=== PATIENT | male | born 1960 | race Caucasian/White ===

== ENCOUNTER 2021-09-17 16:15 | Inpatient (IN) | payer OTHER ==
[~2021-09-17] VITALS: Ht 180.3 cm; Wt 109.9 kg
[2021-09-17 16:42] LABS: Hematocrit 35.6 % (37.0-53.0); Hemoglobin 13.2 g/dL (13.5-17.5); Mean Corpuscular HGB 30.3 pg (26.0-34.0); Mean Corpuscular HGB Conc 37.1 g/dL (31.5-36.5); Mean Corpuscular Volume 82 fL (80-100); Mean Platelet Volume 10.8 fL (9.1-12.4); Platelet Count 221 K/mm3 (150-400); RDW Coefficient Variation 13.4 % (11.7-14.2); RDW Standard Deviation 39.8 fL (35.1-46.3); Red Blood Cell Count 4.36 M/mm3 (4.30-5.90); White Blood Cell Count 17.58 K/mm3 (4.00-11.30)
[2021-09-17 17:05] LABS: Albumin, Blood 2.6 g/dL (3.4-5.0); Albumin/Globulin Ratio 0.6 (0.8-1.8); Bilirubin, Total 0.2 mg/dL (0.1-1.0); Bun/Creatinine Ratio 30.3 (12.0-20.0); Calcium, Blood 8.6 mg/dL (8.5-10.1); Creatinine, Blood 2.31 mg/dL (0.60-1.20); Potassium, Blood 3.2 mmol/L (3.5-5.5); Total Protein, Blood 6.6 g/dL (6.4-8.2)
[2021-09-17 17:11] LABS: BAND PERCENT MAN 7 % (0-8); BASOPHILS PERCENT MAN 0 % (0-2); EOSINOPHILS PERCENT MAN 0 % (0-6); LYMPHOCYTES ABSOLUTE MAN 0.87 K/mm3 (0.84-5.20); LYMPHOCYTES PERCENT MAN 5 % (21-46); METAMYELOCYTE ABSOLUTE MAN 0.17 K/mm3 (0.00-0.00); METAMYELOCYTE PERCENT MAN 1 % (0-0); MONOCYTES ABSOLUTE MAN 1.93 K/mm3 (0.16-1.47); MONOCYTES PERCENT MAN 11 % (4-13); MYELOCYTE ABSOLUTE MAN 0.17 K/mm3 (0.00-0.00); MYELOCYTE PERCENT MAN 1 % (0-0); NEUTROPHILS ABSOLUTE MAN 14.41 K/mm3 (1.96-9.15); SEG NEUTROPHILS PERCENT MAN 75 % (41-73); TOTAL CELLS COUNTED 100
[2021-09-17 18:17] LABS: Source, Urine Clean Catch
[2021-09-17 18:27] LABS: Bilirubin, Urine Neg (Neg); Blood, Urine 2+ (Neg); Glucose Qualitative, Urine 4+ (Neg); Ketones, Urine Neg (Neg); Leukocyte Esterase, Urine 1+ (Neg); Nitrite, Urine Neg (Neg); Protein, Urine Neg (Neg); Urobilinogen, Urine NORM (Normal)
[2021-09-17 18:35] LABS: Magnesium, Blood 2.7 mg/dL (1.6-2.4)
[2021-09-17 18:37] LABS: Thyroid Stimulating Hormone 1.96 uIU/mL (0.360-4.800)
[2021-09-17 18:39] LABS: Appearance, Urine Clear (Clear); Color, Urine Pale Yellow (P-Yellow)
[2021-09-17 18:41] LABS: Amorphous Light (0-Heavy); Bacteria Mod /hpf; Red Blood Cells, Urine 0-2 /hpf (0-2); Squamous Epithelial Cells Rare /hpf (Few)
[2021-09-17] MEDS ORDERED: METF500C PO (19:08)
[2021-09-17] MEDS ORDERED: INVOKANA300 MG PO (19:09)
[2021-09-17] MEDS ORDERED: AMLO5 PO (19:10)
[2021-09-17 19:11] LABS: Influenza A, PCR NEGATIVE (NEGATIVE); Influenza B, PCR NEGATIVE (NEGATIVE); Resp Syncytial Virus, PCR NEGATIVE (NEGATIVE); SARS-Cov-2 (COVID-19) PCR, MMC NEGATIVE (NEGATIVE)
[2021-09-17] MEDS ORDERED: FURO20 PO (19:13)
[2021-09-17] MEDS ORDERED: LISI20 PO (19:13)
--- NOTE | 2021-09-17 23:30 | NUR ---
PT ADMITTED TO ROOM ICU 3 AT 2230 THIS EVENING FROM ED. REPORT RECEIVED. PT ABLE TO PIVOT TRANSFER TO BED FROM [facility]. DURING THIS TIME, LEVOPHED WAS ON HOLD. NO VERTIGO WITH TRANSFER. BLOOD PRESSURES REMAINED HYPOTENSIVE WITH MAP NEAR 60. LEVOPHED RESTARTED AT 5 MCG'S/MIN. PT HAS SOFT/LOOSE STOOL THAT WAS BLACK IN NATURE. PT ADMITS THAT HE HAS BEEN USING PEPTO-BISMOL LATELY. DR REYEZ WAS CONSULTED, AND IS AWARE OF DARK STOOL. SAMPLE HAS BEEN SENT TO LAB FOR PROCESSING. PT DEMONSTRATES THAT HE IS MODERATELY IMPULSIVE AND NEEDS TO BE INSTRUCTED TO USE CAUTION SECONDARY TO HYPOTENSION. PT VOIDS Q.S. WILL REVIEW CHART AND PLAN OF CARE FOR THIS PT.
[2021-09-17] MEDS ORDERED: OXYC10ER PO (23:42)
[2021-09-17] MEDS ORDERED: MORP60ER PO (23:44)
[2021-09-17] MEDS ORDERED: TIZA4 PO (23:45)
[2021-09-18 03:18] LABS: Campylobacter Sp Not Detected (NOT DETECT)
[2021-09-18 03:19] LABS: Adenovirus F 40/41 Not Detected (NOT DETECT); Astrovirus Not Detected (NOT DETECT); Cryptosporidium Not Detected (NOT DETECT); Cyclospora Cayetanensis Not Detected (NOT DETECT); E. Coli O157 Not Detected (NOT DETECT); Entamoeba Histolytica Not Detected (NOT DETECT); Enteroaggregative E. coli-EAEC Not Detected (NOT DETECT); Enteropathogenic E. coli-EPEC Not Detected (NOT DETECT); Enterotoxigenic E. coli-ETEC Not Detected (NOT DETECT); Giardia Lamblia Not Detected (NOT DETECT); Norovirus GI/GII Not Detected (NOT DETECT); Plesiomonas Shigelloides Not Detected (NOT DETECT); Rotavirus A Not Detected (NOT DETECT); Salmonella Sp Not Detected (NOT DETECT); Sapovirus Not Detected (NOT DETECT); Shiga Toxin-prod E. coli-STEC Not Detected (NOT DETECT); Shigella/Enteroin E. coli-EIEC Not Detected (NOT DETECT); Vibrio Cholerae Not Detected (NOT DETECT); Vibrio Sp Not Detected (NOT DETECT); Yersinia Enterocolitica Not Detected (NOT DETECT)
--- NOTE | 2021-09-18 03:40 | NUR ---
PER LAB, PT POSITIVE FOR CLOSTRIDIUM DIFF. PT PLACED TO ISOLATION. DR AISSATOU AVILA MD WILL ASSESS ANTIBIOTIC THERAPY. PT HAS BEEN UP TO BEDSIDE COMMODE MULTIPLE TIMES AND VOIDS Q.S. LEVOPHED CONTINUES AT 5 MCG'S/MIN
[2021-09-18 05:32] LABS: Hematocrit 31.6 % (37.0-53.0); Hemoglobin 11.3 g/dL (13.5-17.5); Mean Corpuscular HGB 29.7 pg (26.0-34.0); Mean Corpuscular HGB Conc 35.8 g/dL (31.5-36.5); Mean Corpuscular Volume 83 fL (80-100); RDW Coefficient Variation 13.8 % (11.7-14.2); White Blood Cell Count 14.47 K/mm3 (4.00-11.30)
[2021-09-18 05:45] LABS: Mean Platelet Volume 11.5 fL (9.1-12.4); Platelet Count 199 K/mm3 (150-400)
[2021-09-18 05:48] LABS: BAND PERCENT MAN 8 % (0-8); BASOPHILS PERCENT MAN 0 % (0-2); EOSINOPHILS ABSOLUTE MAN 0.43 K/mm3 (0.00-0.68); EOSINOPHILS PERCENT MAN 3 % (0-6); LYMPHOCYTES ABSOLUTE MAN 0.14 K/mm3 (0.84-5.20); LYMPHOCYTES PERCENT MAN 1 % (21-46); METAMYELOCYTE ABSOLUTE MAN 0.14 K/mm3 (0.00-0.00); METAMYELOCYTE PERCENT MAN 1 % (0-0); MONOCYTES ABSOLUTE MAN 1.88 K/mm3 (0.16-1.47); MONOCYTES PERCENT MAN 13 % (4-13); NEUTROPHILS ABSOLUTE MAN 11.86 K/mm3 (1.96-9.15); SEG NEUTROPHILS PERCENT MAN 74 % (41-73); TOTAL CELLS COUNTED 100
[2021-09-18 05:56] LABS: Albumin, Blood 2.1 g/dL (3.4-5.0); Albumin/Globulin Ratio 0.6 (0.8-1.8); Bilirubin, Total 0.2 mg/dL (0.1-1.0); Bun/Creatinine Ratio 38.4 (12.0-20.0); Calcium, Blood 7.6 mg/dL (8.5-10.1); Creatinine, Blood 1.25 mg/dL (0.60-1.20); Globulin, Blood 3.4 g/dL (2.2-4.0); Magnesium, Blood 2.6 mg/dL (1.6-2.4); Potassium, Blood 3.2 mmol/L (3.5-5.5); Total Protein, Blood 5.5 g/dL (6.4-8.2)
--- NOTE | 2021-09-18 06:30 | NUR ---
PT VOIDS Q.S. THIS SHIFT. LOOSE BM'S HAVE SLOWED. PT ABLE TO GET SOME THIS NIGHT. HAVE MEDICATED PT WITH HOME DOSE OXYCODONE FOR CHRONIC BACK AND LEG PAIN. PT REMAISN IN AFIB THROUGHOUT THE NIGHT. LEVOPHED AT 6 MCG'S/MIN. MAP MAINTAINS > 60. ROOM AIR WITH SATURATIONS REMAINING > 90%. WILL CONTINUE TO MONITOR PT, AND WILL REPORT OFF TO ONCOMING RN.
--- NOTE | 2021-09-18 08:02 | NUR ---
ASSUMED CARE OF PATIENT AT 0700, TITRATING LEVOPHED TO MAP>65, UP TO 8MCG/KG NOW. PT WAS VERY SLEEPY UPON MY ARRIVAL TO THE ROOM, THE FLAGYL, K+RIDERS AND NS ARE INFUSING AT THIS TIME. WILL CHANGE TO 1/5NS PER 'S ORDERS. PT IS ANSWERING QUESTIONS APPROPRIATELY, BLOOD SUGAR COVERED WITH 2U OF SC INSULIN. SEE ASSESSMENT FOR MORE DETAILS.
--- NOTE | 2021-09-18 08:34 | NUR ---
PT HAD BREAKFAST, BEGAN COMPLAINING OF ABDOMINAL CRAMPING. WANTING TO USE THE BSC, ASSIST TO COMMODE. TOLERATED WELL. PT C/O THE LINES/CORDS ARE IN HIS WAY. REASSURED TO WHY WE ARE USING THEM AND THAT HE IS STILL SICK AND ON MEDICA- TION TO INCREASE HIS BLOOD PRESSURE.
--- NOTE | 2021-09-18 09:17 | NUR ---
PT COMPLAINING OF PAIN AT THE IV SITE, IN TO ROUND, SAID TO HOLD THE SECOND BAG OF K+ AND GIVE ORAL DOSES. ALSO DISCUSSING CHANGING THE FLAGYL TO PO. DISCUSSIONS ABOUT THE HICCUPS, WILL LET HER KNOW IF IT CONTINUES AND GETS WORSE.
[2021-09-18 12:49] LABS: Bun/Creatinine Ratio 40.1 (12.0-20.0); Calcium, Blood 8.3 mg/dL (8.5-10.1); Creatinine, Blood 0.97 mg/dL (0.60-1.20); Potassium, Blood 3.3 mmol/L (3.5-5.5)
--- NOTE | 2021-09-18 16:46 | NUR ---
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 HE WAS SO IMPULSIVE AND IN SUCH A HURRY THAT HE URINATED SPLASHING ON THE IV POLE AND FLOOR. CLEANED UP AND LEGS WERE WASHED AND HANDS CLEANED WELL. PT THEN WENT IMMEDIATELY BACK TO SLEEP.
--- NOTE | 2021-09-18 17:39 | NUR ---
CASPER CONTINUES TO HAVE DARK STOOL, [place] [facility] [place] HE HAS BEEN ABLE TO CLUMSILY USE THE URINAL, HE IS URGENT AND IMPULSIVE WHEN IT IS TIME TO USE. HE QUICKLY RISES FROM SLEEP AND THROWS COVERS OFF TRIES TO HURRY TO THE SIDE OF THE BED. HIS NOREPINEPHRINE HAS BEEN ON STANDBY SINCE 1329, MAP >65. IV 1/2 NS @ 200ML/HR. LEGS ARE WEAK AND DISCOLORED, SOME MOTTLING TO THE THIGH, PT STATES THIS IS HIS NORMAL. PIV IN RIGHT AND LEFT AC, PATENT AND WNL. PT GETS VERY SHORT OF BREATH AND TACHY WITH ACTIVITY, HE IS ENCOURAGED TO SLOW DOWN AND BREATHE, HE STATES IT IS R/T THE CRAMPING IN HIS ABDOMEN. MEDICATED WITH FENTANYL 25MCG PER MAR. WILL CONTINUE TO MONITOR AND TREAT, SIGNING OFF TO NEXT SHIFT WHEN ABLE.
--- NOTE | 2021-09-18 19:17 | NUR ---
ASSUMED CARE OF PT AT 1915. REPORT RECEIVED. PT PRESENTS IN ROOM. UP TO BEDSIDE COMMODE. PT EXPERIENCING ABDOMINAL CRAMPING. DID PRINT OUT INFORMATIONAL PAPERS ON C-DIFF FOR PT TO READ. INSTRUCTED PT TO ASK QUESTIONS THAT HE MAY HAVE. WILL REVIEW CHART AND PLAN OF CARE FOR THIS PT.
--- NOTE | 2021-09-18 22:00 | NUR ---
PT DEMONSTRATES DEFICIT IN COPING MECHANISM. PT BECOMES VERY AGITATED ABOUT NOT FEELING WELL FROM C-DIFF. UPSET WITH STAFF THAT HE IS NOT MADE WELL IMMEDIATELY. DID DISCUSS WITH PT CONCERNING C-DIFF AND TREATMENTS. EXPECTATIONS, AND PROGRESS THROUGH DISEASE. HE IS BECOMING VERY IMPULSIVE WITH HIGH RISK FOR FALL. DID CALL DR REYEZ AND OBTAINED ORDER FOR ATIVAN TO HELP PT WITH HIS ANXIETY, AND AGITATION. THIS HAS DEMONSTRATED GOOD AFFECT. WILL CONTINUE TO MONITOR PT. HAVE NEEDED TO START PT'S LEVOPHED BACK AT 3 MCG'S/MIN SECONDARY TO HYPOTENSION.
--- NOTE | 2021-09-19 03:30 | NUR ---
PT HAS BEEN INCONTINENT TO URINE AND BOWEL SECONDARY TO URGENCY. PT REASSURED THAT HE WOULD BE CLEANED AND KEPT FRESH. PT DOES FOLLOW COMMANDS TO TURN AND ASSISTS SOME IN ATTENDS CHANGE AND BEDDING CHANGE. HAVE MEDICATED PT ONCE MORE WITH 1 MG ATIVAN FOR RETURN OF AGITATION AND ANXIOUSNESS. PT DOES SAY THAT THIS HAS HELPED WITH ABDOMINAL CRAMPING. 25 MCG'S FENTANYL ALSO ADMINISTERED FOR BREAKTHROUGH PAIN.
[2021-09-19 03:32] LABS: Hematocrit 33.8 % (37.0-53.0); Hemoglobin 11.9 g/dL (13.5-17.5); Mean Corpuscular HGB 30.4 pg (26.0-34.0); Mean Corpuscular HGB Conc 35.2 g/dL (31.5-36.5); Mean Corpuscular Volume 86 fL (80-100); Mean Platelet Volume 10.4 fL (9.1-12.4); Platelet Count 193 K/mm3 (150-400); RDW Coefficient Variation 14.5 % (11.7-14.2); RDW Standard Deviation 46.1 fL (35.1-46.3); Red Blood Cell Count 3.92 M/mm3 (4.30-5.90)
[2021-09-19 03:51] LABS: Albumin, Blood 2.1 g/dL (3.4-5.0); Albumin/Globulin Ratio 0.6 (0.8-1.8); Bilirubin, Total 0.5 mg/dL (0.1-1.0); Calcium, Blood 7.9 mg/dL (8.5-10.1); Creatinine, Blood 0.61 mg/dL (0.60-1.20); Globulin, Blood 3.6 g/dL (2.2-4.0); Potassium, Blood 3.4 mmol/L (3.5-5.5); Total Protein, Blood 5.7 g/dL (6.4-8.2)
[2021-09-19 04:12] LABS: BAND PERCENT MAN 27 % (0-8); BASOPHILS PERCENT MAN 0 % (0-2); EOSINOPHILS PERCENT MAN 0 % (0-6); LYMPHOCYTES ABSOLUTE MAN 0.56 K/mm3 (0.84-5.20); LYMPHOCYTES PERCENT MAN 3 % (21-46); MONOCYTES ABSOLUTE MAN 1.51 K/mm3 (0.16-1.47); MONOCYTES PERCENT MAN 8 % (4-13); NEUTROPHILS ABSOLUTE MAN 16.82 K/mm3 (1.96-9.15); SEG NEUTROPHILS PERCENT MAN 62 % (41-73); TOTAL CELLS COUNTED 100
--- NOTE | 2021-09-19 05:17 | NUR ---
HAVE BEEN ABLE TO TITRATE DOWN LEVOPHED TO 1 MCG/MIN. WILL MONITOR AND ASSESS ABILITY TO TITRATE TO OFF. PT HAS HAD DARK STOOLS AND HAS BEEN INCONTINENT. PT DID SAY THAT HE HAD BEEN TAKING PEPTO-BISMOL AT HOME FOR GI UPSET. H/H HAS IMPROVED THIS MORNING FROM PREVIOUS VALUES. WILL CONTINUE TO MONITOR PT, AND WILL REPORT OFF TO ONCOMING RN.
--- NOTE | 2021-09-19 09:20 | NUR ---
ASSUMED CARE OF CASPER AT 0700, HE WAS SLEEPING SOUNDLY. SPOKE OUT IN HIS SLEEP DURING HIS CHEM BG, REORIENTED EASILY. AWAKENED FOR BREAKFAST, HE NEEDED TO USE THE BSC, UP AND BACK TO BED. RECITED ALL THE INCIDENTS FROM LAST EVENING WITHOUT ANY PRODDING. ATE ALL OF HIS BREAKFAST, VERY QUICKLY THEN NEEDED TO GO BACK TO THE BS FOR BM. HE WAS UNABLE TO GET HIMSELF SAT BACK UP BEFORE HE WAS INCONTINENT. HE IS ENCOURAGED TO SLOW DOWN ON HIS MEAL TIME AND GIVE HIS STOM- ACH TIME TO PROCESS THE FOOD. THE AMOUNT OF STOOL IS DECREASING FROM YESTERDAY. A BIT MORE CHUNKY THAN TOTALLY LIQUID. HIS NOREPI IS ON SB. FLUIDS OF 1/2NS @ 200ML/HR CONTINUE. HIS LEFT LEG IS MORE PURPLE AND DISCOLORED THAN YESTERDAY, THE WOUNDS FROM HIS SCRAPE ON HIS MOTHER'S CAR ARE MORE REDDENED AROUND THE SCABS THAN YESTERDAY. PULSES REMAIN FAINT IN HIS FEET, UNCHANGED FROM YESTERDAY. HERE FOR ROUNDS, ORAL K+ REPLACEMENT ORDERED AND IV METRONIDAZOLE DC'D. NO OTHER CHANGES.
--- NOTE | 2021-09-19 10:20 | NUR ---
CASPER IS RESTING QUIETLY, COOPERATIVE WHEN AWAKENED.
--- NOTE | 2021-09-19 17:28 | NUR ---
CASPER HAS CONTINUED TO DO WELL T/O THE DAY. HE CONTINUES TO HAVE THE ABDOMINAL CRAMPING AND THE DIARRHEA, ALTHOUGH THE CRAMPING IS EASING UP ENOUGH FOR HIM TO SLEEP AND THE DIARRHEA IS BECOMING LESS LIQUID AND MORE CHUNKY. IT IS GREEN IN COLOR, HIS FLUID INTAKE IS GOOD IS HIS URINE OUTPUT. HE CONTINUES TO BE ORIENTED TO ALL AND ONLY ASKS FOR THE TIME, HIS CONTACTS ARE OUT. HE HAS BEEN CHANGED TO MEDICAL STATUS OF 170 AND HIS CORDS HAVE BEEN REMOVED, MUCH TO HIS PLEASURE. CONTINUES TO MAINTAIN CBG'S <200 AND COVERED WITH MINIMAL INSULIN, USUALLY 2 UNITS. IV FLUIDS CONT. @ 200ML/HR. WILL CONTINUE TO MONITOR AND TREAT UNTIL REPORTING OFF TO NEXT SHIFT.
--- NOTE | 2021-09-20 05:37 | NUR ---
SHIFT SUMMARY PATIENT IS ALERT AND ORIENTED X4. 02 SATS >93% ON RA. BP STABLE, DENIES CP/PRESSURE. UP TO BEDSIDE COMMODE WITH FREQUENT LOOSE BROWN STOOLS. GOOD URINE OUTPUT/UNMEASURABLE AT TIMES. COMPLAINS OF LOWER BACK PAIN AND ABDOMINAL CRAMPING. MEDICATED PER EMAR. PATIENT ABLE TO REPOSITION SELF. CALL LIGHT IN REACH.
[2021-09-20 08:15] LABS: Bun/Creatinine Ratio 25.8 (12.0-20.0); Calcium, Blood 7.8 mg/dL (8.5-10.1); Creatinine, Blood 0.54 mg/dL (0.60-1.20); Potassium, Blood 3.4 mmol/L (3.5-5.5)
[2021-09-20 08:18] LABS: Hematocrit 32.1 % (37.0-53.0); Hemoglobin 11.2 g/dL (13.5-17.5); Mean Corpuscular HGB 29.8 pg (26.0-34.0); Mean Corpuscular HGB Conc 34.9 g/dL (31.5-36.5); Mean Corpuscular Volume 85 fL (80-100); Mean Platelet Volume 10.3 fL (9.1-12.4); Platelet Count 205 K/mm3 (150-400); RDW Coefficient Variation 14.8 % (11.7-14.2); RDW Standard Deviation 46.6 fL (35.1-46.3); Red Blood Cell Count 3.76 M/mm3 (4.30-5.90); White Blood Cell Count 20.17 K/mm3 (4.00-11.30)
[2021-09-20 09:24] LABS: BAND PERCENT MAN 13 % (0-8); BASOPHILS PERCENT MAN 0 % (0-2); EOSINOPHILS PERCENT MAN 1 % (0-6); LYMPHOCYTES ABSOLUTE MAN 1.81 K/mm3 (0.84-5.20); LYMPHOCYTES PERCENT MAN 9 % (21-46); METAMYELOCYTE PERCENT MAN 1 % (0-0); MONOCYTES PERCENT MAN 3 % (4-13); MYELOCYTE PERCENT MAN 1 % (0-0); NEUTROPHILS ABSOLUTE MAN 17.14 K/mm3 (1.96-9.15); SEG NEUTROPHILS PERCENT MAN 72 % (41-73); TOTAL CELLS COUNTED 100
--- NOTE | 2021-09-20 10:23 | NUR ---
ASSUMED CARE OF CASPER AT 0700, HE HAS BEEN MOANING ALL MORNING. WHEN ASKED HE SAID HIS HANDS/FEET/BACK/BELLY ARE ALL UNCOMFORTABLE, HE WAS MEDICATED, ASKING FOR SOAKING OF HIS FEET AND HANDS, HOT SHOWER CAPS WERE APPLIED TO ALL EXTR. WITH GOOD RELIEF. HE DID SPEAK WITH ABOUT HIS PAIN MEDICATION REGIME AND HOW IT DIFFERS FROM HOME, SHE MADE SOME ADJUSTMENTS, HOPEFULLY WE CAN MAKE HIM MORE COMFORTABLE.
--- NOTE | 2021-09-20 18:21 | NUR ---
CASPER IS MORE AWAKE AND ENGAGING THIS EVENING. HE HAS BEEN UP TO THE [facility] [place] AND IS HAVING LESS BM'S. HE IS BEING ABLE TO URINATE WITHOUT STOOLING. HE IS SLOWING DOWN ON HIS MEAL TIMES AND SEEMS TO BE MOANING AND HAVING LESS PAIN. HE ONLY REQUESTED ADDITIONAL PAIN MEDS X1. HE IS HOPING THAT HE MAY BE ABLE TO GO HOME TOMORROW.
[2021-09-21 04:18] LABS: Hematocrit 33.2 % (37.0-53.0); Hemoglobin 11.3 g/dL (13.5-17.5); Mean Corpuscular HGB 29.7 pg (26.0-34.0); Mean Corpuscular Volume 87 fL (80-100); RDW Coefficient Variation 15.2 % (11.7-14.2); RDW Standard Deviation 49.1 fL (35.1-46.3); White Blood Cell Count 13.21 K/mm3 (4.00-11.30)
[2021-09-21 04:26] LABS: Mean Platelet Volume 10.8 fL (9.1-12.4); Platelet Count 185 K/mm3 (150-400)
[2021-09-21 04:40] LABS: Bun/Creatinine Ratio 31.4 (12.0-20.0); Calcium, Blood 8.1 mg/dL (8.5-10.1); Creatinine, Blood 0.54 mg/dL (0.60-1.20)
[2021-09-21 05:14] LABS: BAND PERCENT MAN 4 % (0-8); BASOPHILS ABSOLUTE MAN 0.26 K/mm3 (0.00-0.23); BASOPHILS PERCENT MAN 2 % (0-2); EOSINOPHILS ABSOLUTE MAN 0.13 K/mm3 (0.00-0.68); EOSINOPHILS PERCENT MAN 1 % (0-6); LYMPHOCYTES ABSOLUTE MAN 0.79 K/mm3 (0.84-5.20); LYMPHOCYTES PERCENT MAN 6 % (21-46); METAMYELOCYTE ABSOLUTE MAN 0.13 K/mm3 (0.00-0.00); METAMYELOCYTE PERCENT MAN 1 % (0-0); MONOCYTES ABSOLUTE MAN 0.79 K/mm3 (0.16-1.47); MONOCYTES PERCENT MAN 6 % (4-13); MYELOCYTE ABSOLUTE MAN 0.52 K/mm3 (0.00-0.00); MYELOCYTE PERCENT MAN 4 % (0-0); NEUTROPHILS ABSOLUTE MAN 10.56 K/mm3 (1.96-9.15); SEG NEUTROPHILS PERCENT MAN 76 % (41-73); TOTAL CELLS COUNTED 100
--- NOTE | 2021-09-21 06:07 | NUR ---
SHIFT SUMMARY PATIENT IS ALERT AND ORIENTED X4. 02 SATS >93% ON RA. BP STABLE, DENIES CP/PRESSURE. INDEPENDENT IN ROOM. FREQUENT STOOLS, BECOMING MORE FORMED, NO LONGER LIQUID. MEDICATED PRN FOR PAIN PER EMAR. ABDOMINAL CRAMPS LESS FREQUENT.
--- NOTE | 2021-09-21 08:40 | NUR ---
CARE OF PT ASSUMED AT 0700. PT AWAKE AND ALERT, HOPING TO BE DISCHARGED HOME TODAY. MIDODRINE HELD FOR SBP >140, WILL NOTIFY MD. PT C/O CHRONIC LEG LEG AND INTERMIT. ABD CRAMPING 07/23. HOME PAIN MEDS GIVEN.
--- NOTE | 2021-09-21 12:29 | NUR ---
DR BLAIR AT BEDSIDE, PT TO BE DISCHARGED HOME TODAY.
[2021-09-21] MEDS ORDERED: VANCOCIN HCL250 MG PO (12:57)
[2021-09-21] MEDS ORDERED: LACT PO (12:59)
--- NOTE | 2021-09-21 14:06 | NUR ---
VERBAL AND WRITTEN DC INDSTRUCTIONS GIVEN TO PT WITH CLEAR UNDERSTANDING. RX'S CALLED IN TO [facility] PER PT REQUEST. POWERGLIDE DC'D. PT DC'D HOME 1400 IN STABLE CONDITION, FRIEND DRIVING HIM HOME.
--- NOTE | 2021-09-21 15:01 | NUR ---
CALL RECIEVED FROM [facility] REQUESTING NEW RX FOR PT PER PT REQUEST, " PT DID NOT WANT TO WAIT FOR [facility]". AFTER RX INFORMATION GIVEN, PHARMACIST INFORMED ME THAT [facility] AND [facility] DO NOT ACCEPT MEDICAID AND THAT PT WOULD HAVE TO PAY OUT OF POCKET FOR >1200. I THEN ASKED TO RELAY THIS TO PT AND ASK THAT HE CALL ME FOR ANY ASSISTANCE, THAT I WOULD BE HAPPY TO CALL RX INTO ANOTHER PHARMACY, AND THAT IT WAS VERY IMPRORTANT FOR HIM TO CONTINUE HIS VANCOMYCIN.
== END 2021-09-21 14:03 | disposition home or self-care (01) | DRG 871 ==
LOC: ER 16:15 → ICUW 20:45 → ICUE 20:45
PROVIDERS: Internal Medicine; Physician Assistant; Student in an Organized Health Care Education/Training Program; ADMIT Internal Medicine
PROC: 3E03329 Introduction of Other Anti-infective into Peripheral Vein, Percutaneous Approach (ICD-10-PCS; principal; 2021-09-17)
PROC: 3E033XZ Introduction of Vasopressor into Peripheral Vein, Percutaneous Approach (ICD-10-PCS; 2021-09-17)
DX: A41.9 Sepsis, unspecified organism (principal); R57.1 Hypovolemic shock; R65.21 Severe sepsis with septic shock; N17.9 Acute kidney failure, unspecified; E87.1 Hypo-osmolality and hyponatremia; N39.0 Urinary tract infection, site not specified; A04.72 Enterocolitis due to Clostridium difficile, not specified as recurrent; Z20.822 Contact with and (suspected) exposure to COVID-19; I48.0 Paroxysmal atrial fibrillation; G89.29 Other chronic pain; I12.9 Hypertensive chronic kidney disease with stage 1 through stage 4 chronic kidney disease, or unspecified chronic kidney disease; N18.9 Chronic kidney disease, unspecified; E11.22 Type 2 diabetes mellitus with diabetic chronic kidney disease; E86.1 Hypovolemia; E87.6 Hypokalemia; E78.00 Pure hypercholesterolemia, unspecified; Z98.890 Other specified postprocedural states; Z79.84 Long term (current) use of oral hypoglycemic drugs; Z79.899 Other long term (current) drug therapy
CPT/HCPCS: 0241U; 36415; 74177; 80048; 80053; 81001; 82533; 82947; 83605; 83690; 83735; 84443; 85025; 87040; 87324; 87507; 93005; 93010; 96365-59; 96367; 96375; 99285-25; A9270; C1751; C9113; J0696; J1644; J2543; J3010; J3370; J3480; J7030; J7050; J7060; J7120; Q9967